=== PATIENT | male | born 1945 | race Caucasian/White ===

== ENCOUNTER 2016-04-21 05:46 | Day surgery (SDC) ==
[2016-04-21] MEDS ORDERED: LR 1,000 ML ONE (06:16)
[2016-04-21] MEDS ORDERED: MYLICON DROPS (DOSE) MISC ONE (08:41)
[2016-04-21] MEDS ORDERED: XYLOCAINE-MPF 2% ONE (09:00)
[2016-04-21 09:25] VITALS: BP 146/81
[2016-04-21] MEDS ORDERED: DIPRIVAN 1% ONE (09:59)
--- NOTE | 2016-04-21 10:00 | OPERATIVE NOTE ---
PROCEDURE DATE: 04/21/2016 PREOPERATIVE DIAGNOSIS: History of sigmoid resection in 2004, now with some lower abdominal pain. PROCEDURE PERFORMED: Colonoscopy with polypectomy. PROVIDER: Go Gaffney MD DESCRIPTION OF PROCEDURE: The patient has brought to the GI lab and, after satisfactory IV sedation with propofol, rectal exam revealed an enlarged, hard prostate. A colonoscope was introduced without difficulty. The rectum was otherwise normal. There were a few scattered hyperplastic polyps. One was biopsied. The anastomosis from previous sigmoid resection was widely patent. There was only rare diverticula proximal. The descending, transverse, right colon, and cecum all visualized and otherwise within normal limits with no intrinsic lesions being seen. The scope was gradually removed. The polypectomy site was not bleeding. He tolerated the procedure well. He will get a PSA check today and we will refer him to a urologist for evaluation of his enlarged prostate.
== END 2016-04-21 09:35 | disposition home or self-care (01) ==
LOC: ENDO 05:46
PROVIDERS: ATTEND Surgery
DX: K63.5 Polyp of colon (principal); I10 Essential (primary) hypertension; N40.0 Benign prostatic hyperplasia without lower urinary tract symptoms; K57.30 Diverticulosis of large intestine without perforation or abscess without bleeding
CPT/HCPCS: 88305; J7120